=== PATIENT | female | born 1960 | race African-American/Black ===

== ENCOUNTER 2017-08-15 18:18 | Emergency (ER) | payer MEDICAID, OTHER ==
[~2017-08-15] VITALS: Ht 152.4 cm; Wt 66.0 kg
[~2017-08-15 18:18] MED LIST: TRAMADOL
[2017-08-15] MEDS ORDERED: SODIUM CHLORIDE 0.9% 1,000 ML IV ONE (18:40)
[2017-08-15] MEDS ORDERED: FAMOTIDINE 20MG/2ML VIAL IV STA (18:40)
[2017-08-15] MEDS ORDERED: MAGNESIUM/ALUMINUM HYDROXIDE/SIMETHICONE 30ML UDC PO STA (18:40)
[2017-08-15 19:32] LABS: BASOPHILS % 0.9 % (0.0-2.0); EOSINOPHILS % 6.4 % (0.0-5.0); HEMATOCRIT. 42.7 % (36.0-48.0); HEMOGLOBIN. 14.9 g/dL (12.0-16.0); LYMPHOCYTES % 47.9 % (20.0-50.0); MEAN CORPUSCULAR HEMOGLOBIN 29.4 pg (28.0-32.0); MEAN CORPUSCULAR VOLUME 84.5 fL (81.0-99.0); MEAN PLATELET VOLUME 7.7 fl (7.4-10.4); MONOCYTES % 7.9 % (2.0-8.0); NEUTROPHILS % 36.9 % (40.0-76.0); PLATELET 278 x1000/uL (130-400); RED BLOOD CELL COUNT 5.06 mill/uL (4.2-5.4); RED CELL DISTRIBUTION WIDTH 13.9 % (11.6-14.6)
[2017-08-15 19:36] LABS: CHLORIDE 104 mEq/L (98-107)
[2017-08-15 19:42] LABS: CARBON DIOXIDE 30 mEq/L (21-32)
[2017-08-15 19:50] LABS: TROPONIN I < 0.02 ng/mL (0.00-0.04)
[2017-08-15 22:49] VITALS: BP 115/72
== END 2017-08-15 22:53 | disposition home or self-care (01) ==
LOC: ER 19:18
DX: R10.13 Epigastric pain (principal); R73.9 Hyperglycemia, unspecified; J45.909 Unspecified asthma, uncomplicated; G89.29 Other chronic pain; G43.909 Migraine, unspecified, not intractable, without status migrainosus; F17.210 Nicotine dependence, cigarettes, uncomplicated; Z88.0 Allergy status to penicillin; Z87.11 Personal history of peptic ulcer disease; Z71.6 Tobacco abuse counseling
CPT/HCPCS: 36415; 71010; 80053; 84484; 85025; 93005; 96361; 96374; 99285; 99406; J3490; J7030

== ENCOUNTER 2018-01-16 11:46 | Inpatient (IN) | payer OTHER ==
[~2018-01-16] VITALS: Ht 152.4 cm; Wt 61.3 kg
[2018-01-16 12:54] LABS: BASOPHILS % 0.8 % (0.0-2.0); HEMATOCRIT. 42.2 % (36.0-48.0); HEMOGLOBIN. 14.6 g/dL (12.0-16.0); LYMPHOCYTES % 49.8 % (20.0-50.0); MEAN CORPUSCULAR HEMOGLOBIN 28.9 pg (28.0-32.0); MEAN CORPUSCULAR VOLUME 83.6 fL (81.0-99.0); MONOCYTES % 6.6 % (2.0-8.0); NEUTROPHILS % 39.8 % (40.0-76.0); PLATELET 315 x1000/uL (130-400); RED BLOOD CELL COUNT 5.04 mill/uL (4.2-5.4); RED CELL DISTRIBUTION WIDTH 14.5 % (11.6-14.6)
[2018-01-16 13:00] LABS: PROTHROMBIN TIME 10.6 sec (9.4-11.6)
[2018-01-16 13:05] LABS: CHLORIDE 106 mEq/L (98-107)
[2018-01-16 13:11] LABS: TROPONIN I < 0.02 ng/mL (0.00-0.04)
[2018-01-16] MEDS ORDERED: MORPHINE SULFATE 4 MG/ML CPJ (NOT FOR IM USE) IV ONE (13:30)
[2018-01-16] MEDS ORDERED: ASPIRIN 325MG EC TABLET PO ONE (13:30)
[2018-01-16 15:45] VITALS: BP 132/74
[2018-01-16 16:00] VITALS: BP 132/74
[2018-01-16 20:00] VITALS: BP 117/68
[2018-01-16] MEDS: AMLODIPINE 2.5MG TABLET PO SCH (22:02)
[2018-01-16 23:03] LABS: *AMPHETAMINES SCREEN URINE NEGATIVE (NEGATIVE); *BARBITURATES SCREEN URINE NEGATIVE (NEGATIVE); *BENZODIAZEPINES SCREEN URINE NEGATIVE (NEGATIVE); *COCAINE SCREEN URINE NEGATIVE (NEGATIVE); CANNABINOID URINE SCREEN NEGATIVE (NEGATIVE); METHADONE URINE SCREEN NEGATIVE (NEGATIVE); OPIATES URINE SCREEN PRESUMTIVE POSITIVE (NEGATIVE); PHENCYCLIDINE URINE SCREEN NEGATIVE (NEGATIVE)
[2018-01-17] VITALS: BP 121/75
[2018-01-17] MEDS ORDERED: PANTOPRAZOLE SODIUM 40 MG/VIAL IV SCH (02:00)
[2018-01-17 04:00] VITALS: BP 101/62
[2018-01-17 06:52] LABS: BASOPHILS % 0.9 % (0.0-2.0); EOSINOPHILS % 6.5 % (0.0-5.0); HEMATOCRIT. 39.9 % (36.0-48.0); HEMOGLOBIN. 13.7 g/dL (12.0-16.0); LYMPHOCYTES % 64.4 % (20.0-50.0); MEAN CORPUSCULAR HEMOGLOBIN 28.8 pg (28.0-32.0); MEAN PLATELET VOLUME 7.6 fl (7.4-10.4); MONOCYTES % 5.1 % (2.0-8.0); NEUTROPHILS % 23.1 % (40.0-76.0); PLATELET 330 x1000/uL (130-400); RED BLOOD CELL COUNT 4.74 mill/uL (4.2-5.4); RED CELL DISTRIBUTION WIDTH 14.3 % (11.6-14.6)
[2018-01-17] MEDS ORDERED: REGADENOSON 0.4 MG/5 ML IV SCH (07:15)
[2018-01-17 07:19] LABS: CHLORIDE 104 mEq/L (98-107)
[2018-01-17 07:31] LABS: HDL CHOLESTEROL 62 mg/dL (40-59); LDL CHOLESTEROL 62 mg/dL (5-100); TROPONIN I < 0.02 ng/mL (0.00-0.04)
[2018-01-17 08:00] VITALS: BP 115/67
[2018-01-17] MEDS ORDERED: REGADENOSON 0.4 MG/5 ML IV ONE (09:24)
[2018-01-17] MEDS: AMLODIPINE 2.5MG TABLET PO SCH (10:58)
[2018-01-17 12:00] VITALS: BP 124/78
[2018-01-17] MEDS ORDERED: PROT40 PO (13:17)
[2018-01-17] MEDS ORDERED: AMLO2.5T45 PO (13:17)
[2018-01-17 13:42] VITALS: BP 124/78
[2018-01-17 16:00] VITALS: BP 101/65
== END 2018-01-17 16:50 | disposition home or self-care (01) | DRG 241 ==
LOC: ER 13:19 → ENRESERV 13:36 → 5WST 16:26
PROVIDERS: ADMIT Internal Medicine; ATTEND Internal Medicine
DX: K27.9 Peptic ulcer, site unspecified, unspecified as acute or chronic, without hemorrhage or perforation (principal); I10 Essential (primary) hypertension; F17.210 Nicotine dependence, cigarettes, uncomplicated; G43.909 Migraine, unspecified, not intractable, without status migrainosus; M19.90 Unspecified osteoarthritis, unspecified site; K21.9 Gastro-esophageal reflux disease without esophagitis; Z79.82 Long term (current) use of aspirin; Z82.49 Family history of ischemic heart disease and other diseases of the circulatory system; Z83.3 Family history of diabetes mellitus; Z91.14 Patient's other noncompliance with medication regimen; Z88.0 Allergy status to penicillin; Z79.899 Other long term (current) drug therapy; Z72.89 Other problems related to lifestyle
CPT/HCPCS: 36415; 71045; 78452; 80048; 80053; 80061; 80305; 83735; 83880; 84484; 85025; 85610; 93005; 93017; 93306; 96374; 99285; 99406; A9500; C9113; J2270; J2785

== ENCOUNTER 2023-02-08 05:37 | Emergency (ER) | payer MEDICAID, OTHER ==
[~2023-02-08] VITALS: Ht 157.5 cm; Wt 48.0 kg
[~2023-02-08 05:37] MED LIST changes: +AMLO2.5T45 PO; +PROT40 PO; -TRAMADOL
[2023-02-08 08:16] LABS: BASOPHILS % 0.7 % (0.0-2.0); EOSINOPHILS % 1.2 % (0.0-5.0); HEMATOCRIT. 44.6 % (36.0-48.0); HEMOGLOBIN. 15.1 g/dL (12.0-16.0); LYMPHOCYTES % 18.2 % (20.0-50.0); MEAN CORPUSCULAR HEMOGLOBIN 28.2 pg (28.0-32.0); MEAN CORPUSCULAR VOLUME 83.2 fL (81.0-99.0); MEAN PLATELET VOLUME 7.1 fl (7.4-10.4); MONOCYTES % 6.9 % (2.0-8.0); PLATELET 422 x1000/uL (130-400); RED BLOOD CELL COUNT 5.36 mill/uL (4.2-5.4); RED CELL DISTRIBUTION WIDTH 14.7 % (11.6-14.6)
[2023-02-08 08:21] LABS: CHLORIDE 107 mEq/L (98-107)
[2023-02-08 09:00] VITALS: BP 129/70
== END 2023-02-08 10:03 | disposition home or self-care (01) ==
LOC: ER 05:37
DX: F41.9 Anxiety disorder, unspecified (principal); I10 Essential (primary) hypertension; G43.909 Migraine, unspecified, not intractable, without status migrainosus; Z88.0 Allergy status to penicillin
CPT/HCPCS: 36415; 71045; 80053; 83880; 84484; 85025; 85379; 93005; 99285; Z7610